=== PATIENT | female | born 1995 | race African-American/Black ===

== ENCOUNTER 2019-07-21 10:55 | Emergency (ER) | payer OTHER, MEDICAID ==
[~2019-07-21] VITALS: Ht 172.7 cm; Wt 83.9 kg
[2019-07-21 11:08] VITALS: BP_SYST 127
--- NOTE | 2019-07-21 11:08 | NUR ---
Patient to ER bed H1 to gown for evaluation. Side rails up.
--- NOTE | 2019-07-21 11:09 | NUR ---
Patient arrived via POV, AAOx4, and ambulatory with steady gait. Patient c/c of wheezing and mild pain with increasing pain with deep inspiration. Patient states history of asthma and has been out of her inhaler. Patient has wheezing bilaterally. Patient able to speak in 5-7 word sentences. Will continue to follow up and monitor.
--- NOTE | 2019-07-21 11:10 | NUR ---
NALLELY Raya at bedside examining patient.
[2019-07-21] MEDS ORDERED: IPRATROPIUM/ALBUTEROL SULFATE 3 ML AMPUL.NEB (DUONEB) INH ONE (11:30)
[2019-07-21 11:59] VITALS: BP_SYST 127
--- NOTE | 2019-07-21 11:59 | NUR ---
Patient given written and verbal discharge instructions and verbalizes understanding. ER MD discussed with patient the results and treatment provided. Patient in stable condition. ID arm band removed. Rx of Albuterol given. Patient educated on pain management and to follow up with PMD. Pain Scale 0/10. Opportunity for questions provided and answered. Medication side effect fact sheet provided.
== END 2019-07-21 11:59 | disposition home or self-care (01) ==
LOC: SED 10:55
DX: J45.901 Unspecified asthma with (acute) exacerbation (principal); Z88.0 Allergy status to penicillin; Z88.6 Allergy status to analgesic agent
CPT/HCPCS: 94640; 99283; J7620

== ENCOUNTER 2019-08-17 19:37 | Emergency (ER) | payer OTHER, MEDICAID ==
[~2019-08-17] VITALS: Ht 172.7 cm; Wt 85.3 kg
[2019-08-17 19:44] VITALS: BP_SYST 120
[2019-08-17] MEDS: IPRATROPIUM/ALBUTEROL SULFATE 3 ML AMPUL.NEB (DUONEB) INH ONE (19:59)
[2019-08-17 20:47] VITALS: BP_SYST 120
== END 2019-08-17 20:47 | disposition home or self-care (01) ==
LOC: SED 19:37
DX: J45.901 Unspecified asthma with (acute) exacerbation (principal); F12.90 Cannabis use, unspecified, uncomplicated; F17.290 Nicotine dependence, other tobacco product, uncomplicated; Z88.0 Allergy status to penicillin; Z88.6 Allergy status to analgesic agent; Z71.6 Tobacco abuse counseling
CPT/HCPCS: 71045; 93005; 94640; 99283; J7620

== ENCOUNTER 2019-09-06 22:18 | Emergency (ER) | payer OTHER, MEDICAID ==
[~2019-09-06] VITALS: Ht 172.7 cm; Wt 85.7 kg
[2019-09-06 22:34] VITALS: BP_SYST 112
--- NOTE | 2019-09-06 22:37 | NUR ---
Pt placed to ER waiting room in stable condition. Urine specimen cup provided.
--- NOTE | 2019-09-06 23:57 | NUR ---
Pt placed to ER Chair 1. Report given to DIMITRI Nicole.
--- NOTE | 2019-09-07 00:01 | NUR ---
PAtient brought in with friend complaining of runny nose, cough, and congestions x 2 weeks with left ear pain today. Denies any fever , nausea, vomiting or diarrhea. Pain 6/10. No other complaints/injures per patient or as noted. Will continue to monitor.
--- NOTE | 2019-09-07 00:28 | NUR ---
ER at bedside examining patient.
[2019-09-07] MEDS ORDERED: HYDROcodone/ACETAMIN 5-325 MG TAB (NORCO/ VICODIN) PO ONE (00:45)
--- NOTE | 2019-09-07 00:57 | NUR ---
Patient given written and verbal discharge instructions and verbalizes understanding. ER MD Dr. Cruz discussed with patient the results and treatment provided. Patient in stable condition. ID arm band removed. Rx of albuterol, zithromax, zofran, norco given. Patient educated on pain management and to follow up with PMD. Pain Scale 0/10. Opportunity for questions provided and answered. Medication side effect fact sheet provided.
[2019-09-07 00:59] VITALS: BP_SYST 112
== END 2019-09-07 00:57 | disposition home or self-care (01) ==
LOC: SED 22:18
DX: H66.92 Otitis media, unspecified, left ear (principal); R05 Cough; J45.909 Unspecified asthma, uncomplicated; H69.90 Unspecified Eustachian tube disorder, unspecified ear; Z88.0 Allergy status to penicillin; Z88.8 Allergy status to other drugs, medicaments and biological substances
CPT/HCPCS: 99283

== ENCOUNTER 2020-10-04 17:35 | Emergency (ER) | payer OTHER, MEDICAID ==
[~2020-10-04] VITALS: Ht 172.7 cm; Wt 83.9 kg
[2020-10-04 17:42] VITALS: BP_SYST 119
--- NOTE | 2020-10-04 17:45 | NUR ---
Patient triaged and placed in waiting room. VSS and patient appears in no acute distress at this time. Awaiting available bed, and MD notified of need for MSE.
--- NOTE | 2020-10-04 19:42 | NUR ---
Patient left without being seen.
[2020-10-04 21:28] VITALS: BP_SYST 119
== END 2020-10-04 19:42 | disposition left against medical advice (07) ==
LOC: SED 17:35
DX: N64.4 Mastodynia (principal); Z53.21 Procedure and treatment not carried out due to patient leaving prior to being seen by health care provider

== ENCOUNTER 2021-12-02 20:03 | Emergency (ER) | payer MEDICAID, OTHER ==
[~2021-12-02] VITALS: Ht 172.7 cm; Wt 87.1 kg
[2021-12-02 20:10] VITALS: BP_SYST 103
--- NOTE | 2021-12-02 20:10 | NUR ---
Patient triaged and placed in waiting room. VSS and patient appears in no acute distress at this time. Accompanied by FAM MEMBER, awaiting available bed, and MD notified of need for MSE.
--- NOTE | 2021-12-02 22:53 | NUR ---
Patient to ER bed 3 to gown for evaluation. Side rails up. Report given to FARHEEN MOSLEY.
--- NOTE | 2021-12-02 22:59 | NUR ---
Pt awake a/o x4. speech clear and coherent. pt states she had an asthma attack [employer] to [employer]. pt denies sob at this time. speaks in full sentences. respirations even and unlabored. chest expansion symmetrical. o2 sat 98% on room air. pt states she ran out of inhaler and wants a script, also requesting for a breathing tx. denies pain. awaiting for MD bautista. will continue to monitor.
--- NOTE | 2021-12-02 23:12 | NUR ---
Pt ambulated to bathroom with steady gait unassisted. nad.
[2021-12-02] MEDS ORDERED: METHYLPREDNISOLONE SOD SUCC 40 MG/ML VIAL IVP ONE (23:15)
[2021-12-02] MEDS ORDERED: methylPREDNISolone SOD SUCC/PF 62.5 MG/ML VIAL IM ONE (23:15)
[2021-12-02] MEDS ORDERED: IPRATROPIUM/ALBUTEROL SULFATE 3 ML AMPUL.NEB (DUONEB) INH ONE (23:15)
[2021-12-02] MEDS ORDERED: PRED20TA PO (23:47)
[2021-12-02] MEDS ORDERED: ALBMDI INH (23:47)
--- NOTE | 2021-12-03 00:07 | NUR ---
Pt discharged. Pt awake a/o x4. aci reviewed with pt, verbalized understanding. rx to be filled. to follow up with pmd within the next 2-3 days or return to ed if condition worsens. vs stable. ambulatory with steady gait unassisted. nad.
[2021-12-03 00:08] VITALS: BP_SYST 118
== END 2021-12-03 00:08 | disposition home or self-care (01) ==
LOC: SED 20:03
DX: J45.901 Unspecified asthma with (acute) exacerbation (principal); Z88.0 Allergy status to penicillin; Z88.6 Allergy status to analgesic agent; Z79.899 Other long term (current) drug therapy
CPT/HCPCS: 81025; 94640; 96372; 99283; J2930

== ENCOUNTER 2022-03-07 23:16 | Emergency (ER) | payer OTHER, MEDICAID ==
[~2022-03-07] VITALS: Ht 172.7 cm; Wt 88.5 kg
[~2022-03-07 23:16] MED LIST: ALBMDI INH; PRED20TA PO
--- NOTE | 2022-03-07 23:24 | NUR ---
Patient to ER bed 7 to gown for evaluation. Side rails up. Report given to Sumit MOSLEY.
[2022-03-07 23:25] VITALS: BP_SYST 115
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
--- NOTE | 2022-03-07 23:56 | NUR ---
NALLELY Benitez at bedside examining patient.
[2022-03-08] MEDS ORDERED: ALPRAZolam 0.25 MG TABLET ONE (00:53)
[2022-03-08] MEDS: ALPRAZolam 0.25 MG TABLET PO ONE (00:54)
[2022-03-08] MEDS ORDERED: TRAM50TA PO (01:10)
[2022-03-08] MEDS: OXYCODONE/ACETAMINOPHEN 5-325 TABLET PO ONE (01:24)
--- NOTE | 2022-03-08 01:26 | NUR ---
Patient given written and verbal discharge instructions and verbalizes understanding. ER MD discussed with patient the results and treatment provided. Patient in stable condition. ID arm band removed. Rx of Tramadol given. Patient educated on pain management and to follow up with PMD. Pain Scale 4/10. Opportunity for questions provided and answered. Medication side effect fact sheet provided.
[2022-03-08 01:27] VITALS: BP_SYST 113
--- NOTE | 2022-03-08 03:42 | NUR ---
Patient will be admitted to care of Dr De Santiago. Admitted to unit. . Belongings list completed. Complete and up to date summary report printed. SBAR report to Mattie MOSLEY be given over phone with opportunity for questions.
== END 2022-03-08 02:50 | disposition home or self-care (01) ==
LOC: SED 23:16
DX: S16.1XXA Strain of muscle, fascia and tendon at neck level, initial encounter (principal); S80.02XA Contusion of left knee, initial encounter; S09.90XA Unspecified injury of head, initial encounter; J45.909 Unspecified asthma, uncomplicated; Z88.6 Allergy status to analgesic agent; Z88.8 Allergy status to other drugs, medicaments and biological substances; Z79.899 Other long term (current) drug therapy; V49.49XA Driver injured in collision with other motor vehicles in traffic accident, initial encounter; Y93.89 Activity, other specified; Y92.89 Other specified places as the place of occurrence of the external cause; Y99.8 Other external cause status
CPT/HCPCS: 71045; 73030; 73560-TC; 81025; 99284